=== PATIENT | male | born 1970 | race American Indian/Alaskan Native ===

== ENCOUNTER 2021-01-17 14:00 | Outpatient (CLI) | payer BC ==
--- NOTE | 2021-01-17 14:49 | XRay Report ---
CHEST 2 VIEWS INDICATION / CLINICAL INFORMATION: COVID 19 U07.1. COMPARISON: None available. FINDINGS: SUPPORT DEVICES: None. HEART / MEDIASTINUM: No significant abnormality. LUNGS / PLEURA: No significant pulmonary or pleural abnormality. No pneumothorax. ADDITIONAL FINDINGS: No significant additional findings. IMPRESSION: 1. No acute findings. Signer Name: Robi Quiñones MD Signed: 01/17/2021 2:44 PM Workstation Name: [id number]
== END 2021-01-17 14:01 | disposition home or self-care (01) ==
LOC: SPVIMAG 14:00
PROVIDERS: ATTEND Internal Medicine
DX: U07.1 COVID-19 (principal)
CPT/HCPCS: 71046